=== PATIENT | male | born 1975 | race Caucasian/White ===

== ENCOUNTER 2020-09-09 10:34 | Day surgery (SDC) | payer SELFPAY ==
[2020-09-02 10:42] LABS: BASOPHILS # (AUTO) 0.1 K/uL (0.00-0.22); EOSINOPHILS # (AUTO) 0.3 K/uL (0-0.4); HEMOGLOBIN 18.1 g/dL (12.0-18.0); LYMPHOCYTES # (AUTO) 1.6 K/uL (2.0-11.5); MEAN CORPUSCULAR HGB CONC 34 g/dL (33-37); MONOCYTES # (AUTO) 0.6 K/uL (0.8-1.0); RED CELL DISTRIBUTION WIDTH 13.8 % (11.6-13.7)
[2020-09-02 10:46] LABS: BASOPHILS % (AUTO) 1.3 % (0.0-2.0); EOSINOPHILS % (AUTO) 5.8 % (0.0-4.0); HEMATOCRIT 53.4 % (36-52); LYMPHOCYTES % (AUTO) 28.4 % (20.5-51.1); MEAN CORPUSCULAR HEMOGLOBIN 30 pg (27-31); MONOCYTES % (AUTO) 9.7 % (1.7-9.3); NEUTROPHILS # (AUTO) 3.1 K/uL (1.8-7.7); NEUTROPHILS % (AUTO) 54.8 % (42.2-75.2); PLATELET COUNT (AUTO) 155 K/uL (140-450); RED BLOOD CELL COUNT(AUTO) 6.07 MIL/uL (4.20-6.10); WHITE BLOOD COUNT (AUTO) 5.7 K/uL (4.8-10.8)
[2020-09-02 10:54] LABS: ALBUMIN 4.1 g/dL (3.4-5.0); ANION GAP 13.8 (8-16); CARBON DIOXIDE 25.9 mmol/L (21-32); CREATININE 1.2 mg/dL (0.6-1.3); POTASSIUM 4.7 mmol/L (3.5-5.1); TOTAL BILIRUBIN 0.6 mg/dL (0.0-1.0)
[~2020-09-09] VITALS: Ht 180.3 cm; Wt 111.1 kg
[2020-09-09] MEDS ORDERED: BENA40TA PO (11:34)
[2020-09-09] MEDS ORDERED: GLYCOPYRROLATE 0.2 MG/ML VIAL ONE (12:39)
[2020-09-09] MEDS ORDERED: ONDANSETRON 4 MG/2 ML VIAL ONE (12:39)
[2020-09-09] MEDS ORDERED: ROCURONIUM 50 MG/5 ML VIAL IV ONE (12:39)
[2020-09-09] MEDS ORDERED: KETOROLAC 30 MG/ML VIAL ONE (12:39)
[2020-09-09] MEDS ORDERED: DEXAMETHASONE 4 MG/ML VIAL ONE (12:39)
[2020-09-09] MEDS ORDERED: SEVOFLURANE 250 ML BTL INH ONE (12:39)
[2020-09-09] MEDS ORDERED: NEOSTIGMINE 1:1000 10 MG/10 ML VIAL ONE (12:39)
[2020-09-09] MEDS ORDERED: PROPOFOL 200 MG/20 ML VIAL IV ONE (12:39)
[2020-09-09] MEDS ORDERED: SUCCINYLCHOLINE CHLORIDE 200 MG/10 ML VIAL IVP ONE (12:39)
[2020-09-09] MEDS ORDERED: fentaNYL citrate 0.05 MG/ML VIAL ONE (12:39)
[2020-09-09] MEDS ORDERED: BUPIVACAINE-MPF 0.25% 30 ML VIAL INJ ONE (12:51)
[2020-09-09] MEDS ORDERED: LIDOCAINE 1% 500 MG/50 ML VIAL ONE (12:51)
[2020-09-09] MEDS ORDERED: HYDROGEN PEROXIDE 3% 240 ML BTL TP ONE ×2 (12:52→13:09)
[2020-09-09] MEDS ORDERED: HYDROmorphone 1 MG/ML AMP IVP PRN ×2 (13:50→13:55)
[2020-09-09] MEDS ORDERED: MEPERIDINE 25 MG/ML SYR IVP PRN (13:50)
[2020-09-09] MEDS ORDERED: ONDANSETRON 4 MG/2 ML VIAL IVP PRN ×2 (13:50→13:55)
[2020-09-09] MEDS ORDERED: LACTATED RINGERS 1,000 ML IV SCH ×2 (13:50→13:55)
== END 2020-09-09 16:45 | disposition home or self-care (01) ==
LOC: MDS 10:34 → MMU 10:34 → MDS 16:45
PROVIDERS: ATTEND Surgery
DX: K60.3 Anal fistula (principal); I10 Essential (primary) hypertension; E78.5 Hyperlipidemia, unspecified; E66.3 Overweight; Z20.828 Contact with and (suspected) exposure to other viral communicable diseases
CPT/HCPCS: 36415; 46060; 71045; 80053; 85025; J0330; J1100; J1885; J2001; J2405; J2704; J2710; J3010; J3490; J7120; U0003